=== PATIENT | female | born 1985 | race Hispanic/Latino ===

== ENCOUNTER 2024-07-21 15:17 | Emergency (ER) | payer MEDICAID ==
[~2024-07-21] VITALS: Ht 162.6 cm; Wt 95.7 kg
[2024-07-21 15:56] LABS: BASOPHILS # (AUTO) 0.01 K/uL (0.00-0.20); BASOPHILS % (AUTO) 0.2 % (0.0-5.0); EOSINOPHILS # (AUTO) 0.01 K/uL (0.00-0.70); EOSINOPHILS % (AUTO) 0.2 % (0.0-8.0); HEMATOCRIT 38.7 % (36-48); IMMATURE GRANULOCYTE ABSOLUTE 0.03 K/uL (0-1); LYMPHOCYTES # (AUTO) 0.8 K/uL (1.0-4.8); LYMPHOCYTES % (AUTO) 17.7 % (21.0-51.0); MEAN CORPUSCULAR HEMOGLOBIN 28.3 pg (27.0-33.0); MEAN CORPUSCULAR HGB CONC 32.8 g/dL (32.0-36.0); MEAN CORPUSCULAR VOLUME 86.2 fL (79-99); MONOCYTES # (AUTO) 0.5 K/uL (0.1-1.0); MONOCYTES % (AUTO) 9.6 % (3.0-13.0); NEUTROPHILS # (AUTO) 3.4 K/uL (1.8-7.7); NEUTROPHILS % (AUTO) 71.7 % (40.0-77.0); PLATELET COUNT (AUTO) 243 K/uL (130-400); RED BLOOD CELL COUNT(AUTO) 4.49 MIL/uL (4.00-5.50); RED CELL DISTRIBUTION WIDTH 14.4 % (11.0-15.5); WHITE BLOOD COUNT (AUTO) 4.7 K/uL (4.8-10.8)
[2024-07-21 16:04] LABS: CREATININE 0.7 mg/dL (0.5-1.0); POTASSIUM 3.5 mmol/L (3.5-5.1)
--- NOTE | 2024-07-21 16:27 | HMCIMG ---
TRANSABDOMINAL AND TRANSVAGINAL PELVIC ULTRASOUND; DATED 07/21/2024 4:25 PM CDT. CLINICAL INDICATION : vaginal bleeding during FINDINGS: Single live intrauterine gestation in the fundal endometrium. No perigestational sac hematoma identified. CRL measures 0.35 cm , corresponds to 6 weeks 0 days. cardiac activity and heart rate is 157 beats per minute. The uterus is anteverted with normal shape. It measures 11 x 5.8 x 5.5 cm in its maximum length, anteroposterior and transverse dimensions. The myometrium is homogeneous and there is no evidence of focal or diffuse lesions. Both ovaries appear normal with normal flow on color and Spectral Doppler. The right ovary measures 2.2 x 2.7 x 1.8 cm and the left ovary measures 1.8 x 1.6 x 2.1 cm. No adnexal masses. No free fluid or collections. Urinary bladder appears normal. IMPRESSION: 1. Single live intrauterine gestation 6 weeks 0 days.
[2024-07-21 16:47] VITALS: BP 124/80; PULSE 80; RESP 16; TEMP 98.3; O2SAT 98
[2024-07-21 17:03] LABS: ADD UA MICROSCOPIC YES; APPEARANCE,URINE TURBID (CLEAR); BILIRUBIN,URINE NEGATIVE (NEGATIVE); COLOR,URINE RED (YELLOW); GLUCOSE, URINE (UA) NEGATIVE (NEGATIVE); KETONES,URINE NEGATIVE (NEGATIVE); LEUKOCYTE ESTERASE ,URINE 250 Leu/uL (NEGATIVE); NITRATE,URINE NEGATIVE (NEGATIVE); OCCULT BLOOD,URINE LARGE (NEGATIVE); PH,URINE 6.5 (5.0-8.0); PROTEIN,URINE 200 mg/dL (NEGATIVE); UROBILINOGEN,URINE 0.2 mg/dL (0.2-1.0)
[2024-07-21 17:05] LABS: RBC,URINE TNTC /HPF (0-1); WBC CLUMP RARE /HPF (0-1)
--- NOTE | 2024-07-21 17:41 | ERN ---
General Chief Complaint: Vaginal Bleeding Stated Complaint: BLEEDING Time Seen by MD: 15:19 Time Seen by Midlevel: 15:19 Source: patient History of Present Illness Initial Comments 38-year-old female presenting to the emergency department for evaluation of vaginal bleeding that started earlier today. The bleeding is described as mild spotting. No blood clots are reported. Patient reports being a . She is followed by an OBGYN in [place] but it was set to see him in two days. Denies any abdominal cramping or any other symptoms at this time. Allergies: Coded Allergies: No Known Allergies (Unverified Allergy, Unknown, 07/21/24) Past Medical History Past Medical History: No Pertinent History Past Surgical History: Female( History) LMP: Jun 02, 2024 : 6 Para: 2 Aborts: 3 ROS Dictation CONSTITUTIONAL: Negative except for HPI HEAD/FACE: Negative except for HPI EENT: Negative except for HPI RESPIRATORY: Negative except for HPI GASTROINTESTINAL/ABDOMINAL: Negative except for HPI GENITOURINARY: Negative except for HPI MUSCULOSKELETAL: Negative except for HPI INTEGUMENTARY: Negative except for HPI NEUROLOGICAL/PSYCH: Negative except for HPI HEMATOLOGIC/LYMPHATIC: Negative except for HPI All Systems Negative, Except as noted above. 13 point review of systems assessed and all negative except for above. Physical Exam Physical Exam Dictation Vital Signs reviewed General Appearance: Alert, oriented x 3, no acute distress, well developed, nourished. Head and Face: non-traumatic. Eyes: PERRL, pink conjunctivas, eyelid no trauma, anterior chamber with arcus senilis. Ears: Pinnas intact and no signs of trauma or erythema ear canals clear and no discharge TM no erythema Nose: No discharge, no bleeding. Oropharynx: Mouth normal, tongue pink, pharynx clear,no erythema, tonsils no exudates, no abscesses noted, mucous membrane moist Neck: Supple, non-tender, no thyromegaly, no masses, no JVD, no bruits Breast:Deferred Chest:No tenderness, no crepitus, no paradoxical movement, no retractions Lungs:Clear, well-ventilated, symmetric, no rales, no wheezing, no rhonchi, no stridor, good breath sounds bilaterally Heart: Regular rate, regular rhythm, no murmur, no gallops Vascular: no peripheral edema, Abdomen: Soft, positive bowel sounds, nondistended, no guarding, nontender, no rebound, no masses no hepatomegaly, no splenomegaly, no Del Castillo's sign, no hernias. Rectal: Deferred Genital: Deferred Neurological: Normal speech, motor function intact, sensory function intact Musculoskeletal: Neck nontender, full range of motion, back nontender, full range of motion, Extremities: nontender, full range of motion Skin: Color pink, dry, no turgor, no rash, no lacerations, no abrasions, no contusions. Lymphatic: Deferred Results Laboratory and Microbiology Lab and Micro Result Laboratory Tests Test 07/21/24 15:40 07/21/24 16:50 White Blood Count 4.7 K/uL (4.8-10.8) L Red Blood Count 4.49 MIL/uL (4.00-5.50) Hemoglobin 12.7 g/dL (12.0-16.0) Hematocrit 38.7 % (36-48) Mean Corpuscular Volume 86.2 fL (79-99) Mean Corpuscular Hemoglobin 28.3 pg (27.0-33.0) Mean Corpuscular Hemoglobin Concent 32.8 g/dL (32.0-36.0) Red Cell Distribution Width 14.4 % (11.0-15.5) Platelet Count 243 K/uL (130-400) Mean Platelet Volume 10.8 fL (7.5-10.5) H Immature Granulocyte % (Auto) 0.6 % (0-1) Neutrophils (%) (Auto) 71.7 % (40.0-77.0) Lymphocytes (%) (Auto) 17.7 % (21.0-51.0) L Monocytes (%) (Auto) 9.6 % (3.0-13.0) Eosinophils (%) (Auto) 0.2 % (0.0-8.0) Basophils (%) (Auto) 0.2 % (0.0-5.0) Neutrophils # (Auto) 3.4 K/uL (1.8-7.7) Lymphocytes # (Auto) 0.8 K/uL (1.0-4.8) L Monocytes # (Auto) 0.5 K/uL (0.1-1.0) Eosinophils # (Auto) 0.01 K/uL (0.00-0.70) Basophils # (Auto) 0.01 K/uL (0.00-0.20) Absolute Immature Granulocyte (auto 0.03 K/uL (0-1) Nucleated Red Blood Cells 0.0 % (0.0-0.19) Sodium Level 138 mmol/L (136-145) Potassium Level 3.5 mmol/L (3.5-5.1) Chloride Level 105 mmol/L (101-111) Carbon Dioxide Level 25 mmol/L (21-32) Blood Urea Nitrogen 13 mg/dL (7-18) Creatinine 0.7 mg/dL (0.5-1.0) Glomerular Filtration Rate Calc 113 mL/min (>90) Random Glucose 110 mg/dL (70-105) H Total Calcium 8.4 mg/dL (8.5-10.1) L Human Chorionic Gonadotropin, Quant 40904 mIU/mL (0-5) H Urine Color RED (YELLOW) Urine Appearance TURBID (CLEAR) Urine pH 6.5 (5.0-8.0) Urine Specific Rowley 1.010 (1.001-1.031) Urine Protein 200 mg/dL (NEGATIVE) H Urine Glucose (UA) NEGATIVE mg/dL (NEGATIVE) Urine Ketones NEGATIVE mg/dL (NEGATIVE) Urine Occult Blood LARGE (NEGATIVE) H Urine Nitrate NEGATIVE (NEGATIVE) Urine Bilirubin NEGATIVE mg/dL (NEGATIVE) Urine Urobilinogen 0.2 mg/dL (0.2-1.0) Urine Leukocyte Esterase 250 Carloz/uL (NEGATIVE) H Urine RBC TNTC /HPF (0-1) H Urine WBC 2-5 /HPF (0-1) H Urine WBC Clumps (Auto) RARE /HPF (0-1) Urine Bacteria None /HPF (None Seen) Labs Reviewed?: Yes MDM MDM: 38-year-old female presenting to the emergency department for evaluation of vaginal bleeding that started earlier today. The bleeding is described as mild spotting. No blood clots are reported. Patient reports being a . She is followed by an OBGYN in [place] but it was set to see him in two days. Denies any abdominal cramping or any other symptoms at this time. On physical examination the patient was in no acute distress. Physical examination is unremarkable. CBC and chemistries are stable. Pelvic ultrasound reveals a single live intrauterine gestation measuring six weeks and 0 days. Urinalysis not show any evidence of infection. Patient has a appointment with her OBGYN in two days and was advised to keep appointment. Copy of her ultrasound report was given to the patient as well as her hCG quant. We will discharged home with supportive management Differential diagnosis: Miscarriage, threatened , 1st trimester There are no social concerns with this patient. Prescription drug management Prescriptions will include: None Medical management and examination interpretation discussions were had by me with other qualified healthcare professionals as indicated for the patient's care. ED Course Orders Procedure Category Date Status Time Cbc With Differential LAB 07/21/24 Complete 15: Basic Metabolic Panel LAB 07/21/24 Complete 15: Hcg,Quantitative LAB 07/21/24 Complete 15: Urinalysis Profile LAB 07/21/24 Complete 15: Us Ob <14 Weeks US 07/21/24 Resulted 15: Culture Urine LEX 07/21/24 In Process 17:03 Vital Signs Date Time Temp Pulse Resp B/P (MAP) Pulse Ox O2 Delivery O2 Flow Rate FiO2 07/21/24 16:47 98.2 80 16 124/80 98 Room Air* 0 21 07/21/24 15:25 99.1 82 16 123/79 99 Room Air 0 DX & DISP Disposition: Discharge Departure Impression: Primary Impression: Vaginal bleeding during Condition: Stable Additional Instructions: Your blood work today is unremarkable. Your hCG quant is [id number]. Your pelvic ultrasound reveals a live single intrauterine gestation measuring six weeks and 0 days. Please keep appointment with your OBGYN for later this week. I advised for bedrest until you can be seen by OBGYN and cleared. Return to the ER if you develop any new or worsening symptoms Referrals: SELF,REFERRAL (PCP) Time of Disposition: 17:40 I have reviewed the case, and I agree with, Diagnosis and Plan I performed the substantive portion of the visit. I have reviewed and personally made and approve the management plan that is documented in the note by myself or the DELLA. I acknowledge for responsibility for the patient's management plan. GUANAKO NEGRON Jul 21, 2024 17:41
== END 2024-07-21 17:52 | disposition home or self-care (01) ==
LOC: EDH 15:17
DX: O20.9 Hemorrhage in early pregnancy, unspecified (principal); O26.891 Other specified pregnancy related conditions, first trimester; R10.2 Pelvic and perineal pain; Z3A.01 Less than 8 weeks gestation of pregnancy
CPT/HCPCS: 36415; 76801; 80048; 81001; 84702; 85025; 87086; 99284

== ENCOUNTER 2024-07-31 17:14 | Emergency (ER) | payer MEDICAID ==
[~2024-07-31] VITALS: Ht 162.6 cm; Wt 103.4 kg
--- NOTE | 2024-07-31 17:18 | ERN ---
ED Note History of Present Illness Stated Complaint: BLEEDING IN Chief Complaint: Vaginal Bleeding Time Seen by MD: 17:15 Dictation: PATIENT IS A 38-YEAR-OLD FEMALE COMING IN TODAY WITH COMPLAINTS OF VAGINAL SPOTTING ONSET THIS AFTERNOON. NO PAIN NO CONTRACTIONS NO BACK PAIN. STATES SHE IS APPROXIMATELY SEVEN WEEKS A3, [employer] [facility] [employer] IN [facility] JUST SAW HIM YESTERDAY. Allergies: Coded Allergies: No Known Allergies (Unverified Allergy, Unknown, 07/21/24) Past Medical History Past Medical History: No Pertinent History Surgical History: : 6 Para: 2 Aborts: 3 RN Note Reviewed/Agreed w/PFSH: Yes Review of System Dictation CONSTITUTIONAL: NEGATIVE EXCEPT FOR HPI HEAD/FACE: NEGATIVE EXCEPT FOR HPI EENT: NEGATIVE EXCEPT FOR HPI RESPIRATORY: NEGATIVE EXCEPT FOR HPI GASTROINTESTINAL/ABDOMINAL: NEGATIVE EXCEPT FOR HPI GENITOURINARY: NEGATIVE EXCEPT FOR HPI SPOTTING MUSCULOSKELETAL: NEGATIVE EXCEPT FOR HPI INTEGUMENTARY: NEGATIVE EXCEPT FOR HPI NEUROLOGICAL/PSYCH: NEGATIVE EXCEPT FOR HPI HEMATOLOGIC/LYMPHATIC: NEGATIVE EXCEPT FOR HPI ALL SYSTEMS NEGATIVE, EXCEPT NOTED ABOVE. 13 POINT REVIEW OF SYSTEMS ASSESSED AND ALL NEGATIVE EXCEPT FOR ABOVE. Initial Vital Sign VS Vital Signs Date Time Temp Pulse Resp B/P (MAP) Pulse Ox O2 Delivery O2 Flow Rate FiO2 07/31/24 17:15 98.2 77 16 134/77 98 Room Air 0 Physical Exam Dictation VITAL SIGNS REVIEWED GENERAL APPEARANCE: ALERT, ORIENTED X 3, NO ACUTE DISTRESS, WELL DEVELOPED, NOURISHED. HEAD AND FACE: NON-TRAUMATIC. EYES: PERRL, PINK CONJUNCTIVAS, EYELID NO TRAUMA, ANTERIOR CHAMBER WITH ARCUS SENILIS. EARS: PINNAS INTACT AND NO SIGNS OF TRAUMA OR ERYTHEMA EAR CANALS CLEAR AND NO DISCHARGE TM NO ERYTHEMA NOSE: NO DISCHARGE, NO BLEEDING. OROPHARYNX: MOUTH NORMAL, TONGUE PINK, PHARYNX CLEAR,NO ERYTHEMA, TONSILS NO EXUDATES, NO ABSCESSES NOTED, MUCOUS MEMBRANE MOIST NECK: SUPPLE, NON-TENDER, NO THYROMEGALY, NO MASSES, NO JVD, NO BRUITS BREAST:DEFERRED CHEST:NO TENDERNESS, NO CREPITUS, NO PARADOXICAL MOVEMENT, NO RETRACTIONS LUNGS:CLEAR, WELL-VENTILATED, SYMMETRIC, NO RALES, NO WHEEZING, NO RHONCHI, NO STRIDOR, GOOD BREATH SOUNDS BILATERALLY HEART: REGULAR RATE, REGULAR RHYTHM, NO MURMUR, NO GALLOPS VASCULAR: NO PERIPHERAL EDEMA, ABDOMEN: SOFT, POSITIVE BOWEL SOUNDS, NONDISTENDED, NO GUARDING, NONTENDER, NO REBOUND, NO MASSES NO HEPATOMEGALY, NO SPLENOMEGALY, NO PAUL'S SIGN, NO HERNIAS. RECTAL: DEFERRED GENITAL: DEFERRED NEUROLOGICAL: NORMAL SPEECH, MOTOR FUNCTION INTACT, SENSORY FUNCTION INTACT MUSCULOSKELETAL: NECK NONTENDER, FULL RANGE OF MOTION, BACK NONTENDER, FULL RANGE OF MOTION, EXTREMITIES: NONTENDER, FULL RANGE OF MOTION SKIN: COLOR PINK, DRY, NO TURGOR, NO RASH, NO LACERATIONS, NO ABRASIONS, NO CONTUSIONS. LYMPHATIC: DEFERRED Results (Laboratory/Radiology) Laboratory/Radiology Laboratory Tests Test 07/31/24 17:09 White Blood Count 4.5 K/uL (4.8-10.8) L Red Blood Count 4.55 MIL/uL (4.00-5.50) Hemoglobin 12.8 g/dL (12.0-16.0) Hematocrit 38.1 % (36-48) Mean Corpuscular Volume 83.7 fL (79-99) Mean Corpuscular Hemoglobin 28.1 pg (27.0-33.0) Mean Corpuscular Hemoglobin Concent 33.6 g/dL (32.0-36.0) Red Cell Distribution Width 14.2 % (11.0-15.5) Platelet Count 247 K/uL (130-400) Mean Platelet Volume 10.4 fL (7.5-10.5) Immature Granulocyte % (Auto) 0.4 % (0-1) Neutrophils (%) (Auto) 71.1 % (40.0-77.0) Lymphocytes (%) (Auto) 18.6 % (21.0-51.0) L Monocytes (%) (Auto) 9.3 % (3.0-13.0) Eosinophils (%) (Auto) 0.4 % (0.0-8.0) Basophils (%) (Auto) 0.2 % (0.0-5.0) Neutrophils # (Auto) 3.2 K/uL (1.8-7.7) Lymphocytes # (Auto) 0.8 K/uL (1.0-4.8) L Monocytes # (Auto) 0.4 K/uL (0.1-1.0) Eosinophils # (Auto) 0.02 K/uL (0.00-0.70) Basophils # (Auto) 0.01 K/uL (0.00-0.20) Absolute Immature Granulocyte (auto 0.02 K/uL (0-1) Nucleated Red Blood Cells 0.0 % (0.0-0.19) Sodium Level 137 mmol/L (136-145) Potassium Level 3.7 mmol/L (3.5-5.1) Chloride Level 103 mmol/L (101-111) Carbon Dioxide Level 26 mmol/L (21-32) Blood Urea Nitrogen 10 mg/dL (7-18) Creatinine 0.7 mg/dL (0.5-1.0) Glomerular Filtration Rate Calc 113 mL/min (>90) Random Glucose 119 mg/dL (70-105) H Total Calcium 8.8 mg/dL (8.5-10.1) Human Chorionic Gonadotropin, Quant 66648 mIU/mL (0-5) H 1750/ultrasound demonstrates viable IUP, eight weeks three days, heart rate 167 no bleed Labs Reviewed?: Yes ED Course ED Course Orders Procedure Category Date Status Time Cbc With Differential LAB 07/31/24 Complete 17:16 Hcg,Quantitative LAB 07/31/24 Complete 17:16 Us Ob <14 Weeks US 07/31/24 Taken 17:16 Type And Screen BBK 07/31/24 Complete 17:16 Basic Metabolic Panel LAB 07/31/24 Complete 17:16 Vital Signs Date Time Temp Pulse Resp B/P (MAP) Pulse Ox O2 Delivery O2 Flow Rate FiO2 07/31/24 17:15 98.2 77 16 134/77 98 Room Air 0 1845 patient discharged home not active bleeding at this time has a viable IUP no electrolyte imbalance no anemias discharged home with pelvic rest and told to see her primary care doctor and ob/gyn physician tomorrow without fail in [facility] Medical Decision Making MDM MDM: Differential diagnosis: Ectopic /anemia/electrolyte imbalance/dehydration/incomplete a B versus complete a B Rationale: Tests considered and ordered secondary to shared decision making include: Ultrasound/labs Previous outside records reviewed: Old ER visits. Risk of complication and/or morbidity or mortality of patient management: None Medications-Per medication reconciliation Need for hospitalization: Patient does not meet criteria for hospitalization. No Need for emergency major/minor surgery: No There are no social concerns with this patient. Prescription drug management Prescriptions will include symptomatic care Patient's prior external medical records from other ER visits were reviewed by me as indicated. Prior testing and results from previous visits were reviewed. Prior tests were taken into account with medical decision making and resource utilization, independent historian/historians were used to obtain complete medical history. I independently interpreted the test that were performed, results were reviewed by me and considered findings on radiology if ordered. Medical management and examination interpretation discussions were had by me with other qualified healthcare professionals as indicated for the patient's care. DX & DISP Disposition: Discharge Departure Impression: Primary Impression: Vaginal bleeding in patient at less than 20 weeks gestation Additional Impression: Hyperglycemia Condition: Stable Additional Instructions: Follow-up with primary care provider in 1 to 2 days. Take medications as directed here in the emergency room. Okay to continue home medications unless otherwise discussed during your visit in the emergency room today. Return to your nearest emergency room if symptoms worsen or if there is no improvement. Call 911 if you need immediate assistance. Take Tylenol or Motrin [id number] as needed and if no contraindications are present. Increase oral hydration. A wound culture or urine culture was ordered here in the emergency room department please follow-up with primary care provider and advise them to get repeat ports from our facility. If you had any Trav wrap/splints that were applied here, please do not remove them until you see your primary care or specialty. Take Tylenol [id number] as needed for pain. Pelvic rest and no sex of any kind until cleared by your ob/gyn physician doctor tomorrow. Referrals: SELF,REFERRAL (PCP) Time of Disposition: 18:49 I have reviewed the case, and I agree with, Diagnosis and Plan KATHRYN FLOREZ NP Jul 31, 2024 17:18
[2024-07-31 17:37] LABS: BASOPHILS # (AUTO) 0.01 K/uL (0.00-0.20); BASOPHILS % (AUTO) 0.2 % (0.0-5.0); EOSINOPHILS # (AUTO) 0.02 K/uL (0.00-0.70); EOSINOPHILS % (AUTO) 0.4 % (0.0-8.0); HEMATOCRIT 38.1 % (36-48); IMMATURE GRANULOCYTE ABSOLUTE 0.02 K/uL (0-1); LYMPHOCYTES # (AUTO) 0.8 K/uL (1.0-4.8); LYMPHOCYTES % (AUTO) 18.6 % (21.0-51.0); MEAN CORPUSCULAR HEMOGLOBIN 28.1 pg (27.0-33.0); MEAN CORPUSCULAR HGB CONC 33.6 g/dL (32.0-36.0); MEAN CORPUSCULAR VOLUME 83.7 fL (79-99); MONOCYTES # (AUTO) 0.4 K/uL (0.1-1.0); MONOCYTES % (AUTO) 9.3 % (3.0-13.0); NEUTROPHILS # (AUTO) 3.2 K/uL (1.8-7.7); NEUTROPHILS % (AUTO) 71.1 % (40.0-77.0); PLATELET COUNT (AUTO) 247 K/uL (130-400); RED BLOOD CELL COUNT(AUTO) 4.55 MIL/uL (4.00-5.50); RED CELL DISTRIBUTION WIDTH 14.2 % (11.0-15.5); WHITE BLOOD COUNT (AUTO) 4.5 K/uL (4.8-10.8)
[2024-07-31 17:53] LABS: CREATININE 0.7 mg/dL (0.5-1.0); POTASSIUM 3.7 mmol/L (3.5-5.1)
[2024-07-31 18:47] VITALS: BP 131/75; PULSE 75; RESP 16; TEMP 98.2; O2SAT 98
--- NOTE | 2024-07-31 20:16 | HMCIMG ---
TRANSABDOMINAL AND TRANSVAGINAL PELVIC ULTRASOUND; DATED 07/31/2024 8:12 PM CDT. CLINICAL INDICATION : SPOTTING. A3 FINDINGS: Single live intrauterine gestation in the fundal endometrium. No perigestational sac hematoma identified. CRL measures 1.22 cm , corresponds to 7 weeks 3 days. cardiac activity and heart rate is 167 beats per minute. The uterus is anteverted with normal shape. The myometrium is homogeneous and there is no evidence of focal or diffuse lesions. Right ovary normal. Left ovary not seen. No adnexal masses. No free fluid or collections. Urinary bladder appears normal. IMPRESSION: 1. Single live intrauterine gestation with parameters as noted above.
== END 2024-07-31 18:54 | disposition home or self-care (01) ==
LOC: EDH 17:14
DX: O20.9 Hemorrhage in early pregnancy, unspecified (principal); O26.891 Other specified pregnancy related conditions, first trimester; R10.2 Pelvic and perineal pain; R73.9 Hyperglycemia, unspecified; Z3A.01 Less than 8 weeks gestation of pregnancy
CPT/HCPCS: 36415; 76801; 76816; 80048; 84702; 85025; 86850; 86900; 86901; 99284